=== PATIENT | female | born 1985 | race Caucasian/White ===

== ENCOUNTER 2016-09-10 11:07 | Emergency (ER) | payer SELFPAY ==
[~2016-09-10] VITALS: Ht 160 cm; Wt 65.8 kg
[2016-09-10 11:18] VITALS: BP 126/70
[2016-09-10] MEDS ORDERED: SEROQUEL400 MG PO (11:22)
--- NOTE | 2016-09-10 13:24 | NUR ---
PATIENT LEFT WITHOUT BEING SEEN BY DR. LEE. NO FURTHER CARE PROVIDED FOR PATIENT.
== END 2016-09-10 13:24 | disposition left against medical advice (07) ==
LOC: MED 11:07
DX: K62.5 Hemorrhage of anus and rectum (principal); R42 Dizziness and giddiness; H92.01 Otalgia, right ear; Z53.21 Procedure and treatment not carried out due to patient leaving prior to being seen by health care provider